=== PATIENT | female | born 1955 | race Asian ===

== ENCOUNTER 2016-10-12 06:41 | Day surgery (SDC) | payer OTHER ==
[~2016-10-12] VITALS: Ht 167.6 cm; Wt 68.7 kg
[2016-10-12] MEDS ORDERED: ATOR10TA65 PO (07:33)
[2016-10-12] MEDS ORDERED: GABA300S PO (07:33)
[2016-10-12] MEDS ORDERED: AMLO-145 PO (07:33)
[2016-10-12] MEDS ORDERED: CALC1TAB79 PO (07:33)
[2016-10-12 07:59] VITALS: Ht 167.6 cm; Wt 68.7 kg
[2016-10-12 08:07] VITALS: BP 149/78; PULSE 72; RESP 22
[2016-10-12] MEDS ORDERED: MIDAZOLAM 1 MG/ML 2 ML INJ ONE (08:50)
[2016-10-12] MEDS ORDERED: FENTAnyl 50 MCG/ML VIAL ONE (08:51)
[2016-10-12 09:28] VITALS: BP 123/66; PULSE 48; RESP 16
--- NOTE | 2016-10-12 12:07 | GILP ---
DATE OF PROCEDURE: 10/12/2016 NAME OF PROCEDURES: Colonoscopy and biopsy. SURGEON: Dany Baker MD PREOPERATIVE DIAGNOSIS: Screening colonoscopy. POSTOPERATIVE DIAGNOSES: 1. Colonoscopy all the way to the cecum. 2. Small right colon polyp was removed using the biopsy forceps. 3. Internal hemorrhoids. INDICATION FOR THE PROCEDURE: Ms. Sourav Sidhu is a 61-year-old female patient who was scheduled for al reening colonoscopy. The procedure and possible complications are well explained to the patient, she understood and conse nted to the procedure. DESCRIPTION OF PROCEDURE: Under the influence of fentanyl and Versed, the colonoscope was carefully introduced in the rectum and under direct vision, it was advanced all the way to the cecum. FINDINGS: The patient had a small right colon polyp and it was removed using the biopsy forceps. S he had internal hemorrhoids. She was also noted to have a diverticulum near the cecum. She tolerated the procedure very well and there was no complication from the procedure. At the end of the procedures, she was awake with stable vital signs and she was discharged home to the care of her family. IMPRESSION: 1. Colonoscopy all the way to the cecum. 2. Small right colon polyp was removed using the biopsy forceps. 3. Diverticulum near the cecum. 4. Internal hemorrhoids. PLAN: Await histopathology report. Because of the strong family history of colon cancer, the patie nt need a followup colonoscopy in 5 years. Dictated By: DANY BAKER MD GD/NTS Conf#: [id number] DID#: [id number] CC: DANY BAKER MD;*EndCC*
--- NOTE | 2016-10-13 09:10 | CONS ---
DATE OF ADMISSION: 10/12/2016 DATE OF CONSULTATION: TYPE OF CONSULTATION: Preoperative gastroenterology. Dear Dr. Walter: I thank you very much for this kind referral. HISTORY OF PRESENT ILLNESS: Ms. Sourav Sidhu is a 61-year-old female patient who has been referred to [facility] for further evaluation of abdominal pain and change in the bowel habit. The patient states she guan s diffuse abdominal pain and she has also noticed a change in the bowel habit. There is no past his tory of colon neoplasm. The patient never had a screening colonoscopy. Her appetite has been good, and there is no history of significant weight loss. There is no history of peptic ulcer disease. She is not taking any nonsteroidal anti-inflammatory agents. There is no history of gallstones. [facility] does not have any fever, chills or jaundice. There is no history of liver disease. She is hypert ensive. She is not a diabetic. She does not have any heart disease or lung problem. There is no h istory of kidney disease. She has hyperlipidemia. SOCIAL HISTORY: She is a nonsmoker. She does not abuse alcohol. FAMILY HISTORY: Particular for the history of colon cancer in her mom. ALLERGIES: THERE IS NO HISTORY OF SIGNIFICANT DRUG ALLERGY. MEDICATIONS: 1. Amlodipine. 2. Atorvastatin. PHYSICAL EXAMINATION: VITAL SIGNS: She is 5 feet 6 inches tall and she weighs ____ pounds. HEART: Examination of the heart reveals normal first and second heart sounds. LUNGS: Clear. ABDOMEN: Soft without any distention. Liver and spleen are not palpable. There are no masses. Th ere is no focal tenderness. Normal bowel sounds are heard. CENTRAL NERVOUS SYSTEM: Does not reveal any focal neurological deficit. IMPRESSION: 1. Change in the bowel habit. 2. The patient never had screening colonoscopy. 3. Diffuse abdominal pain. 4. The patient had a normal recent [employer] evaluation. 5. Hypertension. 6. Hyperlipidemia. 7. The patient's mother had colon cancer. PLAN: 1. Abdominal ultrasound for further evaluation of abdominal pain. 2. Screening colonoscopy. The procedure and possible complications are well explained to the patient. She understands and con sents to the procedure. I thank you once again. With warmest personal regards, Dictated By: DANY VARGAS/ASHLEY Conf#: [id number] DID#: [id number]
== END 2016-10-12 09:40 | disposition home or self-care (01) ==
LOC: GIL 06:41
PROVIDERS: ATTEND Internal Medicine Gastroenterology
DX: Z12.11 Encounter for screening for malignant neoplasm of colon (principal); K63.5 Polyp of colon; K64.8 Other hemorrhoids; I10 Essential (primary) hypertension; E78.5 Hyperlipidemia, unspecified; Z80.0 Family history of malignant neoplasm of digestive organs
CPT/HCPCS: 45380; 88305; J2250; J3010; Z7610

== ENCOUNTER 2016-11-07 11:26 | Day surgery (SDC) | payer OTHER ==
[2016-10-31 10:59] VITALS: BMI 24.0
[~2016-11-07] VITALS: Ht 167.6 cm; Wt 66.0 kg
[2016-11-07] VITALS (9 sets, daily range): BP systolic 119–146; BP diastolic 61–75; PULSE 50–88; RESP 16–20; Ht 167.6 cm; Wt 66.0 kg
[~2016-11-07 11:26] MED LIST: AMLO-145 PO; ATOR10TA65 PO; CALC1TAB79 PO; CEFAZOLIN 2 GM/50 ML (PMX) 50 ML IVPB ONE; DIPHENHYDRAMINE 50 MG INJ IV PRN; FENTAnyl 50 MCG/ML VIAL IV PRN; GABA300C16 PO; HYDROmorphONE (0.2 MG/ML) 10ML SYG IV PRN; KETOROLAC 15 MG INJ IV ONE; LABETALOL HCL 20MG INJ IV PRN; MEPERIDINE 25 MG INJ IV PRN; METOCLOPRAMIDE 10 MG INJ IV PRN; ONDANSETRON 4 MG INJ IV PRN; OXYCODONE/ACETAMINOPHEN (5/325) TAB PO PRN; PROCHLORPERAZINE 10 MG INJ IV PRN; SOD CHLORIDE 0.9% 1,000 ML IV SCH; hydrALAzine 20 MG INJ IV PRN
[2016-11-07] MEDS ORDERED: MIDAZOLAM 1 MG/ML 2 ML INJ ONE (11:59)
[2016-11-07] MEDS ORDERED: CEFAZOLIN 1 GM INJ ONE (11:59)
[2016-11-07] MEDS ORDERED: PROPOFOL 20 ML ONE (11:59)
[2016-11-07] MEDS ORDERED: LIDOCAINE 2% (SDV) 5 ML INJ ONE (11:59)
[2016-11-07] MEDS ORDERED: SUCCINYLCHOLINE CHLORIDE 100 MG/5 ML SYG IV ONE (11:59)
[2016-11-07] MEDS ORDERED: ROCURONIUM 50 MG INJ ONE (11:59)
[2016-11-07] MEDS ORDERED: FENTAnyl 50 MCG/ML VIAL ONE (11:59)
--- NOTE | 2016-11-07 12:40 | RADRPT ---
PROCEDURE: XR Chest. CLINICAL INDICATION: Preop for left colon. TECHNIQUE: Single frontal view of the chest was obtained COMPARISON: No. FINDINGS: The soft tissues are normal. The bony elements are normal. The cardiomediastinal silhouette, pulmo nary vasculature and hilar structures are normal. There are vascular calcifications in the aortic ar ch. The right diaphragm is elevated. The lungs are clear. The costophrenic angles are normal. IMPRESSION: 1. There is no evidence of active cardiopulmonary disease. 2. Atherosclerosis of the aortic arch. RPTAT:AAJJ Physician Ferdinand Date Time Electronically viewed and signed by Donnie Lim Physician on 11/07/2016 12:40 /
[2016-11-07] MEDS ORDERED: BUPIVACAINE 0.25% (MPF) 30 ML INJ ONE (12:56)
[2016-11-07] MEDS ORDERED: ONDANSETRON 4 MG INJ ONE (13:15)
[2016-11-07] MEDS ORDERED: DEXAMETHASONE 4 MG/ML 1 ML INJ ONE (13:15)
[2016-11-07] MEDS ORDERED: NEOSTIGMINE 3 MG/3 ML SYRINGE ONE (13:35)
[2016-11-07] MEDS ORDERED: GLYCOPYRROLATE 0.4 MG INJ ONE (13:35)
[2016-11-07] MEDS ORDERED: KETOROLAC 30 MG INJ ONE (13:39)
[2016-11-07] MEDS ORDERED: HYDROCODONE/APAP (5/325) TAB PO ONE (14:00)
--- NOTE | 2016-11-07 14:45 | OPR ---
DATE OF OPERATION: 11/07/2016 INDICATION: This is a 61-year-old female with symptomatic gallstones. She requests surgical excisi on of her gallbladder. Risks, alternatives, benefits, and personnel were discussed with the patient . Patient expressed understanding and consents to the operation. PREOPERATIVE DIAGNOSIS: Symptomatic gallstones. POSTOPERATIVE DIAGNOSIS: Symptomatic gallstones. OPERATION: Laparoscopic cholecystectomy. SURGEON: Susana Flores MD STEREOPTICIAN: Adam Azar MD SPECIMENS: Gallbladder. COMPLICATIONS: None. ANESTHESIA: General. PROCEDURE: The patient taken to the OR and prepped and draped in the usual sterile fashion. Surgic al timeout was performed. IV antibiotics were given. Infraumbilical incision was made transversely with a 15 blade. Dissection cautery was carried down to the fascia which was grasped with Kochers and divided with curved Ramirez scissors. An 0 Vicryl U-stitch was placed into the fascia. Balloon Almeida sson trocar was introduced. Pneumoperitoneum was established. Midepigastric 12 mm optical trocar a nd right upper quadrant, right upper flank 5 mm optical trocars placed under direct visualization. Upon initial inspection, there were some adhesions to the gallbladder. The cystic duct was identifi ed. The critical view was established. The cystic duct was divided using a 35 mm [place] vascular load stapler. The cystic artery was divided using 2 clips proximal, 1 clip distal. The gallbladder was taken off the gallbladder bed. There was good hemostasis. Gallbladder was retrieved using an EndoCatch bag. Ports were removed under direct visualization, 0 Vicryl U-stitch was tied down. Ski n was closed using skin eric. Local anesthesia was injected. Dry dressings were applied. Dictated By: SUSANA FLORES MD SB/NTS Conf#: [id number] DID#: [id number] CC: ADAM AZAR MD;*EndCC*
--- NOTE | 2016-11-09 19:12 | RADRPT ---
Vent Rate: 61 bpm RR Interval: 0 msec MA Interval: 152 msec QRS Duration: 86 msec QT Interval: 438 msec QTC Interval: 440 msec P-R-T [place]: 45 - 85 - 75 degrees Normal sinus rhythm Cannot rule out Posterior infarct , age undetermined Abnormal ECG Electronically Signed By: Karlos Briscoe [id number]
== END 2016-11-07 16:24 | disposition home or self-care (01) ==
LOC: SDS 11:26
PROVIDERS: ATTEND Surgery
DX: K80.10 Calculus of gallbladder with chronic cholecystitis without obstruction (principal); I10 Essential (primary) hypertension; E78.5 Hyperlipidemia, unspecified
CPT/HCPCS: 47562; 71010; 88304; 93005; J0330; J0690; J1100; J1885; J2250; J2405; J2710; J3010; Z7512; Z7610